=== PATIENT | female | born 1980 | race Caucasian/White ===

== ENCOUNTER 2017-02-13 12:37 | Emergency (ER) | payer OTHER ==
[~2017-02-13] VITALS: Ht 170.2 cm; Wt 70.0 kg
[~2017-02-13 12:37] MED LIST: ASPI-390 PO; CLR10 PO
[2017-02-13 12:43] VITALS: TEMP 36.6; Ht 170.2 cm; Wt 70.0 kg
[2017-02-13] MEDS ORDERED: ONDANSETRON INJ 2 MG/ML 2 ML VIAL IV STA (12:58)
[2017-02-13] MEDS ORDERED: SODIUM CHLORIDE 0.9% 1000ML 1,000 ML IV STA (12:58)
[2017-02-13] MEDS ORDERED: MECLIZINE HCL 25 MG TAB PO STA (12:58)
[2017-02-13 13:33] LABS: BASO % 0.6 %; BASO ABS # 0.02 K/uL (0-0.2); COMPLETE YES; EOS % 1.7 %; HEMATOCRIT 41.3 % (37-47); LYMPH ABS # 1.01 K/uL (1.2-3.4); MEAN CELL VOLUME 87.7 fL (80-100); MEAN CORPUSCULAR HEMOGLOBIN 30.4 pg (25-34); MEAN CORPUSCULAR HGB CONC 34.6 g/dl (32-36); MONO % 8.9 %; NEUT % 60.8 %; PLATELET COUNT 266 K/uL (130-400); RED BLOOD COUNT 4.71 M/uL (4.2-5.4); WHITE BLOOD COUNT 3.61 K/uL (4.8-10.8)
[2017-02-13 13:51] LABS: ALT/SGPT 25 U/L (12-78); BLOOD UREA NITROGEN 14 mg/dl (7-18); CALCIUM 9.2 mg/dl (8.5-10.1); CARBON DIOXIDE 25 mmol/L (21-32); CHLORIDE 109 mmol/L (98-107); CREATININE 0.82 mg/dl (0.60-1.20); GLUCOSE 76 mg/dl (70-99); POTASSIUM 3.8 mmol/L (3.5-5.1); SODIUM 140 mmol/L (136-145)
[2017-02-13 14:01] LABS: ALB/GLOB RATIO 1.3 (0.9-2); ALKALINE PHOSPHATASE 80 U/L (45-117); AST/SGOT 22 U/L (15-37); THYROID STIMULATING HORMONE 0.899 uIu/ml (0.300-4.500)
--- NOTE | 2017-02-13 14:01 | EMERGENCY ROOM VISIT NOTE ---
History Report prepared by Prabhu: Gaby Chaves Under the Supervision of: Dr. Chucho Tavera M.D. First contact with patient: 12:46 Chief Complaint: DIZZY Stated Complaint: LIGHTHEADED, DIZZY Nursing Triage Summary: pt to the ED with feeling light headed and dizzy since friday with a MENDEZ and has had diarrhea and felt "off" History of Present Illness The patient is a 37 year old female who presents to the Emergency Room with complaints of persistent dizziness that started 3 days ago. She describes the dizziness as lightheadedness and states that she feels off balance. The lightheadedness was resolved when she ran on the treadmill yesterday. She states that the lightheadedness was worse yesterday after standing up from sitting. She is also experiencing cloudy vision and nausea. The patient has never experienced these symptoms in the past. She states that she also experienced a headache 3 days ago that was worse when she laid in certain positions so she thought it might be related to something with her sinuses. She states that she has headaches daily, but the one 3 days ago was more severe than usual. The patient has never had vertigo in the past, but adds that her father has vertigo. She states that her legs feel weak, like she is going to fall down, when she experiences the lightheadedness. She denies fevers, recent cough, cold, chest pain, shortness of breath, and urinary symptoms. The patient states that she experienced one episode of diarrhea yesterday. The patient denies any recent imaging of her head. She states that she had a MRI done several years ago ordered by Dr. Randle - Neurology who was evaluating her for headaches. Source of History: patient Onset: 3 days ago Position: head Quality: other (lightheadedness, off balance) Timing: other (persistent) Modifying Factors (Worsening): other (standing up from sitting) Modifying Factors (Relieving): exertion (running on the treadmill) Associated Symptoms: + headache, + nausea, + diarrhea, + weakness (in bilateral legs), No fevers, No cough, No chest pain, No SOB, No urinary symptoms Note: cloudy vision, no recent colds Review of Systems See HPI for pertinent positives & negatives. A total of 10 systems reviewed and were otherwise negative. Past Medical & Surgical Medical Problems: (1) Hx of Banks's palsy Family History No significant family history Social History Smoking Status: Never Smoker Alcohol Use: none Drug Use: none Marital Status: single Housing Status: lives with family Occupation Status: employed Current/Historical Medications Scheduled PRN Zgyngok-Dkjcvuzyxflxq-Ohrydzrz (Excedrin Migraine), 1 TAB PO UD PRN for Migraine Meclizine HCl (Meclizine HCl), 1 TAB PO Q6H PRN for Dizziness or Vertigo Allergies Coded Allergies: No Known Allergies (Unverified , 02/13/17) Physical Exam Vital Signs Date Time Temp Pulse Resp B/P (MAP) Pulse Ox O2 Delivery O2 Flow Rate FiO2 02/13/17 14:25 53 16 121/84 100 Room Air 02/13/17 13:17 84 118/74 60 137/82 65 134/84 02/13/17 12:43 36.6 60 16 137/85 100 Room Air Physical Exam GENERAL: Patient is in no acute distress. HEENT: No acute trauma, normocephalic atraumatic, TMs clear bilaterally, mucous membranes moist, no nasal congestion, pupils equal and reactive to light , no nystagmus, no scleral icterus. NECK: No stridor, no adenopathy, no meningismus, trachea is midline. LUNGS: Clear to auscultation bilaterally, no wheeze, no rhonchi, breath sounds equal. HEART: Without murmurs gallops or rubs, regular rate and rhythm. ABDOMEN: Soft, nontender, bowel sounds positive, no hernias, no peritonitis. EXTREMITIES: No cyanosis or edema, full range of motion of all the joints without pain or difficulty, no signs for acute trauma. NEUROLOGIC: Oriented x 3, no acute motor or sensory deficits, no focal weakness , no speech slur or facial droop, no pronator drift or cerebellar dysfunction. SKIN: No rash, no jaundice, no diaphoresis. Medical Decision & Procedures ER Provider Diagnostic Interpretation: CT results as stated below per my review and radiologist interpretation: CT OF THE HEAD WITHOUT CONTRAST FINDINGS: No acute intracranial hemorrhage, midline shift or mass effect is present. Ventricular system is normal. Basilar cisterns are patent. There are no extra-axial collections. Vivar-white differentiation is maintained. There are no findings to suggest acute dural sinus thrombosis or acute territorial infarct. There are no calvarial abnormalities. There is an opacified left ethmoid air cell. Mastoid air cells are clear. IMPRESSION: No acute intracranial findings. Electronically signed by: Jermaine Lizama M.D. 02/13/2017 2:03 PM Dictated Date/Time: 02/13/2017 2:00 PM Orthostatic Vital Signs: Negative Laboratory Results 02/13/17 13:20 Red Blood Count 4.71, Mean Corpuscular Volume 87.7, Mean Corpuscular Hemoglobin 30.4, Mean Corpuscular Hemoglobin Concent 34.6, Mean Platelet Volume 10.0, Neutrophils (%) (Auto) 60.8, Lymphocytes (%) (Auto) 28.0, Monocytes (%) (Auto) 8.9, Eosinophils (%) (Auto) 1.7, Basophils (%) (Auto) 0.6, Neutrophils # (Auto) 2.20, Lymphocytes # (Auto) 1.01, Monocytes # (Auto) 0.32, Eosinophils # (Auto) 0.06, Basophils # (Auto) 0.02 02/13/17 13:20 Test 02/13/17 12:45 02/13/17 13:20 Urine Test NEG (NEG) White Blood Count 3.61 K/uL (4.8-10.8) Red Blood Count 4.71 M/uL (4.2-5.4) Hemoglobin 14.3 g/dL (12.0-16.0) Hematocrit 41.3 % (37-47) Mean Corpuscular Volume 87.7 fL (80-100) Mean Corpuscular Hemoglobin 30.4 pg (25-34) Mean Corpuscular Hemoglobin Concent 34.6 g/dl (32-36) Platelet Count 266 K/uL (130-400) Mean Platelet Volume 10.0 fL (7.4-10.4) Neutrophils (%) (Auto) 60.8 % Lymphocytes (%) (Auto) 28.0 % Monocytes (%) (Auto) 8.9 % Eosinophils (%) (Auto) 1.7 % Basophils (%) (Auto) 0.6 % Neutrophils # (Auto) 2.20 K/uL (1.4-6.5) Lymphocytes # (Auto) 1.01 K/uL (1.2-3.4) Monocytes # (Auto) 0.32 K/uL (0.11-0.59) Eosinophils # (Auto) 0.06 K/uL (0-0.5) Basophils # (Auto) 0.02 K/uL (0-0.2) RDW Standard Deviation 41.6 fL (36.4-46.3) RDW Coefficient of Variation 12.9 % (11.5-14.5) Immature Granulocyte % (Auto) 0.0 % Immature Granulocyte # (Auto) 0.00 K/uL (0.00-0.02) Anion Gap 6.0 mmol/L (3-11) Est Creatinine Clear Calc Drug Dose 91.4 ml/min Estimated GFR () 106.0 Estimated GFR (Non- 91.4 BUN/Creatinine Ratio 17.0 (10-20) Calcium Level 9.2 mg/dl (8.5-10.1) Magnesium Level 2.2 mg/dl (1.8-2.4) Total Bilirubin 2.1 mg/dl (0.2-1) Aspartate Amino Transf (AST/SGOT) 22 U/L (15-37) Alanine Aminotransferase (ALT/SGPT) 25 U/L (12-78) Alkaline Phosphatase 80 U/L (45-117) Troponin I < 0.015 ng/ml (0-0.045) Total Protein 7.4 gm/dl (6.4-8.2) Albumin 4.2 gm/dl (3.4-5.0) Globulin 3.2 gm/dl (2.5-4.0) Albumin/Globulin Ratio 1.3 (0.9-2) Thyroid Stimulating Hormone (TSH) 0.899 uIu/ml (0.300-4.500) Urine dip and urine are negative. Laboratory results reviewed by me. Medications Administered Medications (Trade) Dose Ordered Sig/Kristen Route Start Time Stop Time Status Last Admin Dose Admin Ondansetron HCl (Zofran Inj) 4 mg NOW STAT IV 02/13/17 12:58 02/13/17 13:00 DC 02/13/17 13:31 4 MG Sodium Chloride 1,000 ml @ 999 mls/hr Q1H1M STAT IV 02/13/17 12:58 02/13/17 13:58 DC 02/13/17 13:29 999 MLS/HR Meclizine HCl (Antivert Tab) 25 mg NOW STAT PO 02/13/17 12:58 02/13/17 13:00 DC 02/13/17 13:31 25 MG ECG Indication: weakness Rate (beats per minute): 55 Rhythm: sinus bradycardia Findings: T-wave inversion (Anterior), no ectopy Comparison ECG Date: no prior available ED Course 1251: The patient was evaluated in room B11. A complete history and physical exam was performed. 1258: Ordered Meclizine HCl 25 mg PO, Sodium Chloride 1000 ml @ 999 mls/hr IV, Zofran Inj 4 mg IV 1455: Reevaluated the patient. She is feeling better. Discussed results and discharge instructions: she verbalized understanding and agreement. The patient is ready for discharge. Medical Decision Differential diagnoses considered include vertigo, dehydration, infection, anemia, electrolyte imbalance, intracranial bleeding/mass. Medication Reconciliation: I attest that I have personally reviewed the patient' s current medication list. Blood pressure screening: Patient was found to have a slightly elevated blood pressure due to circumstances. I do not believe that the patient requires hypertension monitoring. There is no leukocytosis, in fact, the white count is slightly low indicating a possible viral infection. No anemia. No significant electrolyte abnormality, kidney failure or hepatitis. The patient appears to be in a euthyroid state. Urine dip does not show infection. testing is negative. Brain CT shows no acute bleed or mass effect. On exam, there were no focal neurologic deficits. Orthostatic vital signs were negative. EKG shows a sinus rhythm with some nonspecific T-wave changes, cardiac enzyme testing times one is not consistent with acute cardiac injury. The patient received IV saline, oral meclizine and IV Zofran, she seems to be doing well, she is resting comfortably. The patient's illness is likely viral. She's had some loose/diarrheal stools, she feels dizzy, she has a lower White blood cell count by our testing. I do think she is stable for discharge. She is being discharged on meclizine for symptom control. She can follow with her doctor and return if worsening. Impression Primary Impression: Dizziness Scribe Attestation The scribe's documentation has been prepared under my direction and personally reviewed by me in its entirety. I confirm that the note above accurately reflects all work, treatment, procedures, and medical decision making performed by me. Departure Information Dispostion Home / Self-Care Prescriptions Meclizine HCl (Meclizine HCl) 25 Mg Tab 1 TAB PO Q6H Y for Dizziness or Vertigo, #15 TAB Prov: Chucho Tavera M.D. 02/13/17 Referrals No Doctor, Assigned (PCP) Forms HOME CARE DOCUMENTATION FORM, IMPORTANT VISIT INFORMATION Patient Instructions My [facility] Additional Instructions fluids rest otc pain meds use meclizine 1 tab as needed every 6 hours for dizziness return if worsening follow with estela shanks for recheck no work tomorrow if you are still having symptoms
--- NOTE | 2017-02-13 14:04 | DIAGNOSTIC IMAGING REPORT ---
CT OF THE HEAD WITHOUT CONTRAST CLINICAL HISTORY: Altered mental status. Weakness. COMPARISON STUDY: MRI of the brain November 02, 2010. CT DOSE: 729.78 mGycm TECHNIQUE: Helical axial images of the head were obtained without IV contrast. Automated exposure control was utilized for the study. FINDINGS: No acute intracranial hemorrhage, midline shift or mass effect is present. Ventricular system is normal. Basilar cisterns are patent. There are no extra-axial collections. Vivar-white differentiation is maintained. There are no findings to suggest acute dural sinus thrombosis or acute territorial infarct. There are no calvarial abnormalities. There is an opacified left ethmoid air cell. Mastoid air cells are clear. IMPRESSION: No acute intracranial findings. Electronically signed by: Jermaine Lizama M.D. 02/13/2017 2:03 PM Dictated Date/Time: 02/13/2017 2:00 PM
[2017-02-13] MEDS ORDERED: ANT25 PO (15:00)
[2017-02-13 15:18] VITALS: BP 110/69; PULSE 55; O2SAT 100
== END 2017-02-13 15:20 | disposition home or self-care (01) ==
LOC: C.EDB 12:38
DX: R42 Dizziness and giddiness (principal); R00.1 Bradycardia, unspecified